=== PATIENT | female | born 1945 | race American Indian/Alaskan Native ===

== ENCOUNTER 2021-11-04 11:27 | Day surgery (SDC) | payer MEDICARE ==
[2021-11-04 12:47] LABS: Basophils % (Auto) 0.9 % (0.0-1.8); Eosinophils # (Auto) 0.1 K/mm3 (0.0-0.4); Eosinophils % (Auto) 2.8 % (0.0-4.3); Hematocrit 35.3 % (30.3-42.9); Hemoglobin 11.3 gm/dl (10.1-14.3); Lymphocytes # (Auto) 1.2 K/mm3 (1.2-5.4); Lymphocytes % (Auto) 38.3 % (13.4-35.0); Mean Corpuscular HGB Conc 32 % (30-34); Mean Corpuscular Volume 91 fl (79-97); Monocytes # (Auto) 0.3 K/mm3 (0.0-0.8); Monocytes % (Auto) 9.6 % (0.0-7.3); Platelet Count 296 K/mm3 (140-440); Red Blood Count 3.86 M/mm3 (3.65-5.03); Red Cell Distribution Width 14.7 % (13.2-15.2)
--- NOTE | 2021-11-04 12:55 | Anesthesia Day of Surgery ---
Anesthesia Day of Surgery - Day of Surgery Patient Examined: Yes Patient H&P Reviewed: Yes Patient is NPO: Yes
[2021-11-04 12:58] LABS: INR 1.01 (0.87-1.13)
--- NOTE | 2021-11-04 12:59 | Anesthesia Consultation ---
Anesthesia Consult and Med Hx Date of service: 11/04/21 - Airway Anesthetic Teeth Evaluation: Dentures, Edentulous ROM Head & Neck: Adequate Mental/Hyoid Distance: Adequate Mallampati Class: Class II Intubation Access Assessment: Good - Pre-Operative Health Status ASA Pre-Surgery Classification: ASA3 Proposed Anesthetic Plan: MAC (GA if needed) - Pulmonary Hx Smoking: No (Quit age 54) SOB: Yes - Cardiovascular System Hx Cardia Arrhythmia: Yes () Hx Pacemaker: Yes (2010) - Central Nervous System Hx Neuromuscular Disorder: Yes (Mild dementia) - Gastrointestinal Hx Gastroesophageal Reflux Disease: No - Hematic Hx Anemia: Yes Hx Sickle Cell Disease: No - Other Systems Hx Obesity: No - Additional Comments Anesthesia Medical History Comments: ECHO [id number]. NST [id number]
[2021-11-04] MEDS ORDERED: SODIUM CHLORIDE IRRI 1000 ML 1,000 ML, .VANCOMYCIN VIAL 1,000 MG IR ONE (13:00)
[2021-11-04 13:06] LABS: BUN/Creatinine Ratio 15; Blood Urea Nitrogen 15 mg/dL (7-17); Calcium 9.5 mg/dL (8.4-10.2); Hemolysis Index 6
[2021-11-04] MEDS ORDERED: MIDAZOLAM 2 MG/2 ML INJ ONE (13:18)
[2021-11-04] MEDS ORDERED: fentaNYL 100 MCG/2 ML INJ ONE (13:18)
[2021-11-04] MEDS ORDERED: propofoL 200 MG/20 ML VIAL IV ONE ×3 (13:23)
[2021-11-04] MEDS ORDERED: LIDOCAINE MPF (2%) 20 MG/1 ML VIAL 5 ML ONE (13:24)
[2021-11-04] MEDS ORDERED: SODIUM CHLORIDE 0.9% 1000 ML 1,000 ML ONE ×2 (13:50→14:11)
[2021-11-04] MEDS ORDERED: ceFAZolin/Water 2 GM/20 ML 2 GM/20 ML SYRINGE IV ONE (14:12)
[2021-11-04] MEDS ORDERED: LIDOCAINE (1%) 10 MG/1 ML VIAL 20 ML MDV ONE ×2 (14:16→14:18)
[2021-11-04] MEDS ORDERED: BUPIVACAINE/PF (0.5%) 5 MG/1 ML 10 ML VIAL INFILTRATI ONE ×2 (14:17→14:18)
--- NOTE | 2021-11-04 15:19 | Short Stay Summary ---
Short Stay Documentation Date of service: 11/04/21 - History H&P: obtained from office - Allergies and Medications Current Medications: Allergies Horse/Equine Containing Products Allergy (Verified 11/04/21 12:19) Swelling - Brief post op/procedure progress note Date of procedure: 11/04/21 Pre-op diagnosis: SSS/PPM Post-op diagnosis: same Anesthesia: local Estimated blood loss: minimal - Hospital course Hospital course: Patient underwent procedure for pacemaker replacement. Patient tolerated procedure well with no complications - Disposition Condition at discharge: Good Disposition: 01 HOME / SELF CARE / HOMELESS Short Stay Discharge Plan Activity: advance as tolerated Diet: low fat, low cholesterol, low salt Wound: keep clean and dry, per your surgeon's advice Additional Instructions: Patient has a follow-up appointment with the device clinic on 11/10/2021 at 2:30 PM at our [place] location Follow up with: PILO JEFFREY MD [Primary Care Provider] - 7 Days
[2021-11-04 15:49] VITALS: BP 182/91
--- NOTE | 2021-11-04 16:39 | Post Anesthesia Evaluation ---
- Post Anesthesia Evaluation Patient Participated: Yes Airway Patent: Yes Stable Respiratory Function: Yes Nausea/Vomiting: No Temp > 96.8F: Yes Pain Manageable: Yes Adequeate Hydration: Yes Anesthesia Complications: No Block Receding Appropriately: Not Applicable Patient on Ventilator: No
== END 2021-11-04 11:28 | disposition home or self-care (01) ==
LOC: CATHLABREC 11:27
PROVIDERS: ATTEND Internal Medicine Cardiovascular Disease
DX: Z45.010 Encounter for checking and testing of cardiac pacemaker pulse generator [battery] (principal); I49.5 Sick sinus syndrome; E78.2 Mixed hyperlipidemia; Z79.899 Other long term (current) drug therapy; Z98.890 Other specified postprocedural states; Z95.0 Presence of cardiac pacemaker
CPT/HCPCS: 33228; 36415; 80048; 85025; 85610; 85730; 93005; C1785; J0690; J2250; J2704; J3010; J3370; J3490; J7030; J7120; Q0162